=== PATIENT | male | born 1930 | race Caucasian/White ===

== ENCOUNTER 2017-07-06 12:34 | Inpatient (IN) | payer MEDICARE, BC ==
[~2017-07-06] VITALS: Ht 182.9 cm; Wt 66.6 kg
[2017-07-06 13:15] VITALS: BP 146/79
[2017-07-06] MEDS ORDERED: LORazepam 2 MG/ML, 1ML IVPush PRN (15:00)
[2017-07-06] MEDS ORDERED: PLEASE ENTER HEIGHT AND WEIGHT MC SCH (15:30)
[2017-07-06] MEDS ORDERED: PLEASE ENTER ALLERGIES MC SCH (15:30)
[2017-07-06 15:59] LABS: BASOPHILS # (AUTO) 0.07 x10^3/uL (0-0.1); BASOPHILS % (AUTO) 1 % (0-1); EOSINOPHILS # (AUTO) 0.07 x10^3/uL (0-0.4); EOSINOPHILS % (AUTO) 1 % (1-7); LYMPHOCYTES # (AUTO) 0.84 x10^3/uL (1-3.4); LYMPHOCYTES % (AUTO) 10 % (22-44); MD NO; MEAN CORPUSCULAR HEMOGLOBIN 32.1 pg (27.5-34.5); MEAN CORPUSCULAR HGB CONC 33.9 g/dL (33.2-36.2); MEAN PLATELET VOLUME 8.8 fL (7.4-10.4); MONOCYTES % (AUTO) 9 % (2-9); NEUTROPHILS # (AUTO) 6.88 x10^3/uL (1.8-6.8); NEUTROPHILS % (AUTO) 79 % (42-75); PLATELET COUNT 159 x10^3/uL (130-400); RED BLOOD COUNT 4.43 x10^6/uL (4.38-5.82); RED CELL DISTRIBUTION WIDTH 15.3 % (9.4-14.8)
[2017-07-06 16:12] LABS: ANION GAP 8 mmol/L (5-15); CALCIUM 8.6 mg/dL (8.5-10.1); CHLORIDE 107 mmol/L (98-107)
[2017-07-06 16:15] LABS: TROPONIN I 0.065 ng/mL (0.000-0.045)
[2017-07-06 16:22] LABS: FREE T4 (FREE THYROXINE) 0.97 ng/dL (0.76-1.46); THYROID STIMULATING HORMONE 18.7 mIU/L (0.358-3.740)
[2017-07-06 17:27] LABS: MICROSCOPIC AUTO
[2017-07-06 17:45] LABS: CULTURE INDICATED? NO
[2017-07-06] MEDS: SODIUM CHLORIDE 0.9% 1,000 ML IV SCH (18:09)
[2017-07-06 19:16] VITALS: BP 167/87
[2017-07-06 21:26] LABS: TROPONIN I 0.051 ng/mL (0.000-0.045)
[2017-07-06] MEDS: ENOXAPARIN 40 MG/0.4 ML SQ SCH (22:55)
[2017-07-07 00:42] VITALS: BP 150/83
[2017-07-07] MEDS: SODIUM CHLORIDE 0.9% 1,000 ML IV SCH ×3 (03:34→23:30)
[2017-07-07 05:45] LABS: CHLORIDE 107 mmol/L (98-107)
[2017-07-07 06:09] LABS: BASOPHILS % (AUTO) 0 % (0-1); EOSINOPHILS # (AUTO) 0.07 x10^3/uL (0-0.4); EOSINOPHILS % (AUTO) 1 % (1-7); LYMPHOCYTES # (AUTO) 0.81 x10^3/uL (1-3.4); LYMPHOCYTES % (AUTO) 8 % (22-44); MD NO; MEAN CORPUSCULAR HEMOGLOBIN 32.6 pg (27.5-34.5); MEAN CORPUSCULAR HGB CONC 34.4 g/dL (33.2-36.2); MEAN CORPUSCULAR VOLUME 94.7 fL (81-97); MEAN PLATELET VOLUME 9.5 fL (7.4-10.4); MONOCYTES # (AUTO) 0.81 x10^3/uL (0.2-0.8); MONOCYTES % (AUTO) 8 % (2-9); NEUTROPHILS # (AUTO) 8.18 x10^3/uL (1.8-6.8); NEUTROPHILS % (AUTO) 83 % (42-75); PLATELET COUNT 163 x10^3/uL (130-400); RED BLOOD COUNT 4.48 x10^6/uL (4.38-5.82); RED CELL DISTRIBUTION WIDTH 15.2 % (9.4-14.8)
[2017-07-07 06:29] LABS: ALANINE AMINOTRANSFERASE 40 U/L (12-78); ALBUMIN 3.2 g/dL (3.4-5.0); ALKALINE PHOSPHATASE 65 U/L (45-117); ANION GAP 10 mmol/L (5-15); CALCIUM 8.7 mg/dL (8.5-10.1); CREATININE 0.85 mg/dL (0.7-1.3); TOTAL PROTEIN 6.8 g/dL (6.4-8.2)
[2017-07-07] MEDS ORDERED: LEVO125T5 PO (06:42)
[2017-07-07] MEDS ORDERED: ASPI-430 PO (06:42)
[2017-07-07] MEDS ORDERED: ACYC-113 PO (06:42)
[2017-07-07] MEDS ORDERED: RISP0.5T3 PO (06:42)
[2017-07-07] MEDS ORDERED: SERT50TA5 PO (06:42)
[2017-07-07] MEDS ORDERED: LYSI500T PO (06:42)
[2017-07-07] MEDS ORDERED: VIT1CAPS45 PO (06:42)
[2017-07-07] MEDS ORDERED: FINA5TAB4 PO (06:42)
[2017-07-07 07:02] VITALS: BP 158/78
[2017-07-07] MEDS ORDERED: RISPERIDONE 0.5 MG TABLET PO SCH (09:00)
[2017-07-07] MEDS: LEVOTHYROXINE 125 MCG TABLET PO SCH (10:58)
[2017-07-07] MEDS: QUETIAPINE 25MG TABLET PO SCH ×3 (10:58→18:00)
[2017-07-07] MEDS: SERTRALINE 50MG TABLET PO SCH (10:58)
[2017-07-07 14:00] VITALS: BP_SYST 171; BP_SYST 174; BP_DIAS 86; BP_DIAS 91
[2017-07-07] MEDS ORDERED: RISPERIDONE 1 MG TABLET PO SCH (16:30)
[2017-07-07] MEDS: MELATONIN 3 MG TABLET PO SCH (21:00)
[2017-07-07] MEDS: ENOXAPARIN 40 MG/0.4 ML SQ SCH (22:10)
[2017-07-08 01:39] VITALS: BP 164/76
[2017-07-08 06:40] VITALS: BP 164/85
[2017-07-08] MEDS: LEVOTHYROXINE 125 MCG TABLET PO SCH (09:03)
[2017-07-08] MEDS: SERTRALINE 50MG TABLET PO SCH (09:03)
[2017-07-08] MEDS: QUETIAPINE 25MG TABLET PO SCH ×3 (09:03→17:46)
[2017-07-08 15:55] VITALS: BP 143/79
[2017-07-08] MEDS: SODIUM CHLORIDE 0.9% 1,000 ML IV SCH (15:56)
[2017-07-08 20:00] VITALS: BP 161/80
[2017-07-08] MEDS: MELATONIN 3 MG TABLET PO SCH (21:00)
[2017-07-08] MEDS: ENOXAPARIN 40 MG/0.4 ML SQ SCH (21:49)
[2017-07-09] MEDS: SODIUM CHLORIDE 0.9% 1,000 ML IV SCH (02:13)
[2017-07-09 03:32] VITALS: BP 150/58
[2017-07-09 08:30] VITALS: BP 143/84
[2017-07-09] MEDS: SERTRALINE 50MG TABLET PO SCH (08:39)
[2017-07-09] MEDS: QUETIAPINE 25MG TABLET PO SCH ×3 (08:39→18:36)
[2017-07-09] MEDS: LEVOTHYROXINE 125 MCG TABLET PO SCH (08:40)
[2017-07-09 15:15] VITALS: BP 162/93
[2017-07-09 19:44] VITALS: BP 148/81
[2017-07-09] MEDS: ENOXAPARIN 40 MG/0.4 ML SQ SCH (20:39)
[2017-07-09] MEDS: MELATONIN 3 MG TABLET PO SCH (20:40)
[2017-07-10 03:50] VITALS: BP 178/69
[2017-07-10 05:42] LABS: CREATININE 0.96 mg/dL (0.7-1.3)
[2017-07-10] MEDS: LEVOTHYROXINE 125 MCG TABLET PO SCH (08:17)
[2017-07-10] MEDS: SERTRALINE 50MG TABLET PO SCH (08:17)
[2017-07-10] MEDS: QUETIAPINE 25MG TABLET PO SCH ×3 (08:17→18:07)
[2017-07-10 08:19] VITALS: BP 173/75
[2017-07-10 14:00] VITALS: BP 145/72
[2017-07-10] MEDS: ENOXAPARIN 40 MG/0.4 ML SQ SCH (19:57)
[2017-07-10] MEDS: MELATONIN 3 MG TABLET PO SCH (19:59)
[2017-07-10 20:39] VITALS: BP 144/74
[2017-07-11 02:00] VITALS: BP 188/84
[2017-07-11 03:02] VITALS: BP 153/91
[2017-07-11] MEDS ORDERED: OLANZAPINE 5 MG TABLET PO ONE (07:00)
[2017-07-11 07:23] VITALS: BP 150/87
[2017-07-11] MEDS: SERTRALINE 50MG TABLET PO SCH (08:50)
[2017-07-11] MEDS: LEVOTHYROXINE 125 MCG TABLET PO SCH (08:51)
[2017-07-11] MEDS: QUETIAPINE 25MG TABLET PO SCH ×3 (08:51→16:41)
[2017-07-11 13:34] VITALS: BP 148/87
[2017-07-11] MEDS ORDERED: QUETIAPINE 25MG TABLET PO PRN (14:30)
[2017-07-11 20:20] VITALS: BP 178/99
[2017-07-11] MEDS: MELATONIN 3 MG TABLET PO SCH (21:00)
[2017-07-11] MEDS: ENOXAPARIN 40 MG/0.4 ML SQ SCH (21:00)
[2017-07-12 06:34] VITALS: BP 143/81
[2017-07-12] MEDS: SERTRALINE 50MG TABLET PO SCH (09:50)
[2017-07-12] MEDS: QUETIAPINE 25MG TABLET PO SCH ×3 (09:50→16:34)
[2017-07-12] MEDS: LEVOTHYROXINE 125 MCG TABLET PO SCH (09:51)
[2017-07-12] MEDS ORDERED: QUET25TA PO (12:48)
[2017-07-12] MEDS ORDERED: MELA3TAB2 PO (12:48)
[2017-07-12] MEDS ORDERED: SERT50TA5 PO (12:48)
[2017-07-12 15:00] VITALS: BP 153/77
== END 2017-07-12 18:13 | DRG 56 ==
LOC: 4EST 14:05
PROVIDERS: ADMIT Hospitalist; ATTEND Hospitalist
PROC: 0T9B70Z Drainage of Bladder with Drainage Device, Via Natural or Artificial Opening (ICD-10-PCS; principal; 2017-07-06)
DX: G30.9 Alzheimer's disease, unspecified (principal); G93.41 Metabolic encephalopathy; J84.9 Interstitial pulmonary disease, unspecified; F01.51 Vascular dementia, unspecified severity, with behavioral disturbance; F05 Delirium due to known physiological condition; F22 Delusional disorders; I35.0 Nonrheumatic aortic (valve) stenosis; E03.9 Hypothyroidism, unspecified; E78.5 Hyperlipidemia, unspecified; H91.93 Unspecified hearing loss, bilateral; I10 Essential (primary) hypertension; K59.00 Constipation, unspecified; R32 Unspecified urinary incontinence; Z66 Do not resuscitate; F32.9 Major depressive disorder, single episode, unspecified; M54.30 Sciatica, unspecified side; Z79.82 Long term (current) use of aspirin; Z79.899 Other long term (current) drug therapy; Z85.46 Personal history of malignant neoplasm of prostate; Z86.73 Personal history of transient ischemic attack (TIA), and cerebral infarction without residual deficits; Z86.79 Personal history of other diseases of the circulatory system; Z90.49 Acquired absence of other specified parts of digestive tract; Z90.79 Acquired absence of other genital organ(s); Z95.5 Presence of coronary angioplasty implant and graft
CPT/HCPCS: 36415; 71010; 80048; 80053; 81001; 82565; 84439; 84443; 84484; 85025; 95819; J1650; J7030

== ENCOUNTER 2017-08-15 13:28 | Inpatient (IN) | payer MEDICARE, BC ==
[~2017-08-15] VITALS: Ht 177.8 cm; Wt 62.4 kg
[~2017-08-15 13:28] MED LIST: ACYC-113 PO; ASPI-430 PO; FINA5TAB4 PO; LEVO125T5 PO; LYSI500T PO; MELA3TAB2 PO; QUET25TA PO; RISP0.5T3 PO; SERT50TA5 PO; VIT1CAPS45 PO
[2017-08-15 13:55] LABS: BASOPHILS # (AUTO) 0.04 x10^3/uL (0-0.1); BASOPHILS % (AUTO) 1 % (0-1); EOSINOPHILS # (AUTO) 0.07 x10^3/uL (0-0.4); EOSINOPHILS % (AUTO) 1 % (1-7); LYMPHOCYTES # (AUTO) 0.87 x10^3/uL (1-3.4); LYMPHOCYTES % (AUTO) 13 % (22-44); MD NO; MEAN CORPUSCULAR HEMOGLOBIN 32.2 pg (27.5-34.5); MEAN CORPUSCULAR HGB CONC 33.6 g/dL (33.2-36.2); MEAN CORPUSCULAR VOLUME 95.8 fL (81-97); MEAN PLATELET VOLUME 8.1 fL (7.4-10.4); MONOCYTES # (AUTO) 0.45 x10^3/uL (0.2-0.8); MONOCYTES % (AUTO) 7 % (2-9); NEUTROPHILS # (AUTO) 5.26 x10^3/uL (1.8-6.8); NEUTROPHILS % (AUTO) 79 % (42-75); PLATELET COUNT 213 x10^3/uL (130-400); RED BLOOD COUNT 3.82 x10^6/uL (4.38-5.82); RED CELL DISTRIBUTION WIDTH 15.9 % (9.4-14.8)
[2017-08-15 14:01] LABS: ALBUMIN 3.3 g/dL (3.4-5.0); ANION GAP 8 mmol/L (5-15); CALCIUM 8.5 mg/dL (8.5-10.1); CHLORIDE 103 mmol/L (98-107); CREATININE 0.97 mg/dL (0.7-1.3); T4 (THYROXINE) 10.1 mcg/dL (4.5-12.1)
[2017-08-15 14:11] LABS: THYROID STIMULATING HORMONE 0.321 mIU/L (0.358-3.740)
[2017-08-15 14:51] LABS: MICROSCOPIC NOT IND
[2017-08-15] MEDS ORDERED: ONDANSETRON 2MG/ML, 2ML IVPush PRN (16:30)
[2017-08-15] MEDS ORDERED: BISACODYL 10 MG SUPP PR PRN (16:30)
[2017-08-15] MEDS ORDERED: LABETALOL 5MG/ML, 20ML IVPush PRN (16:30)
[2017-08-15] MEDS ORDERED: ASPIRIN 81 MG TABLET EC PO PRN (16:30)
[2017-08-15] MEDS ORDERED: DOCUSATE 100 MG CAPSULE PO PRN (16:30)
[2017-08-15] MEDS ORDERED: ACETAMINOPHEN 325 MG TABLET PO PRN (16:30)
[2017-08-15] MEDS ORDERED: POLYETHYLENE GLYCOL 17 GM PACKET PO PRN (16:30)
[2017-08-15 16:53] LABS: FOLATE LEVEL 14.5 ng/mL (3.1-17.5)
[2017-08-15] MEDS ORDERED: MAGN200T7 PO (17:46)
[2017-08-15] MEDS ORDERED: QUET50TA PO (17:53)
[2017-08-15] MEDS: ACYCLOVIR 200 MG CAPSULE PO SCH (20:26)
[2017-08-15] MEDS: QUETIAPINE 25MG TABLET PO SCH (20:26)
[2017-08-15] MEDS: SODIUM CHLORIDE FLUSH 10ML SYR IVF SCH (20:27)
[2017-08-15] MEDS: MELATONIN 3 MG TABLET PO SCH (20:27)
[2017-08-15 20:30] VITALS: BP 158/77
[2017-08-15] MEDS: ENOXAPARIN 40 MG/0.4 ML SQ SCH (20:30)
[2017-08-16 01:38] VITALS: BP 148/77
[2017-08-16 04:42] LABS: BASOPHILS # (AUTO) 0.02 x10^3/uL (0-0.1); BASOPHILS % (AUTO) 0 % (0-1); EOSINOPHILS # (AUTO) 0.05 x10^3/uL (0-0.4); EOSINOPHILS % (AUTO) 1 % (1-7); LYMPHOCYTES # (AUTO) 0.97 x10^3/uL (1-3.4); LYMPHOCYTES % (AUTO) 10 % (22-44); MD NO; MEAN CORPUSCULAR HEMOGLOBIN 32.1 pg (27.5-34.5); MEAN CORPUSCULAR HGB CONC 33.3 g/dL (33.2-36.2); MEAN CORPUSCULAR VOLUME 96.4 fL (81-97); MEAN PLATELET VOLUME 8.4 fL (7.4-10.4); MONOCYTES # (AUTO) 0.81 x10^3/uL (0.2-0.8); MONOCYTES % (AUTO) 9 % (2-9); NEUTROPHILS # (AUTO) 7.62 x10^3/uL (1.8-6.8); NEUTROPHILS % (AUTO) 80 % (42-75); PLATELET COUNT 229 x10^3/uL (130-400); RED BLOOD COUNT 4.21 x10^6/uL (4.38-5.82); RED CELL DISTRIBUTION WIDTH 15.6 % (9.4-14.8)
[2017-08-16 04:54] LABS: ALBUMIN 3.5 g/dL (3.4-5.0); ANION GAP 6 mmol/L (5-15); CALCIUM 8.7 mg/dL (8.5-10.1); CHLORIDE 103 mmol/L (98-107)
[2017-08-16 04:58] LABS: ALANINE AMINOTRANSFERASE 26 U/L (12-78); ALKALINE PHOSPHATASE 80 U/L (45-117); BILIRUBIN,TOTAL 0.9 mg/dL (0.2-1.0); CREATININE 1.01 mg/dL (0.7-1.3); TOTAL PROTEIN 7.3 g/dL (6.4-8.2)
[2017-08-16 07:25] VITALS: BP_SYST 154; BP_SYST 177; BP_DIAS 72; BP_DIAS 76
[2017-08-16] MEDS: LEVOTHYROXINE 125 MCG TABLET PO SCH (08:25)
[2017-08-16] MEDS: SODIUM CHLORIDE FLUSH 10ML SYR IVF SCH ×2 (08:25→21:00)
[2017-08-16] MEDS: QUETIAPINE 25MG TABLET PO SCH ×3 (08:25→23:48)
[2017-08-16] MEDS: SERTRALINE 50MG TABLET PO SCH (08:25)
[2017-08-16] MEDS: ACYCLOVIR 200 MG CAPSULE PO SCH (08:25)
[2017-08-16] MEDS: FINASTERIDE 5 MG TABLET PO SCH (08:26)
[2017-08-16] MEDS: COD LIVER OIL HOMEMEDPO SCH (08:27)
[2017-08-16] MEDS: [UNRECOGNIZED DRUG - OTHER] HOMEMEDPO SCH (08:27)
[2017-08-16] MEDS ORDERED: LYSINE 1000 MG PO SCH (09:00)
[2017-08-16 09:33] VITALS: BP 130/74
[2017-08-16 13:14] VITALS: BP 116/68
[2017-08-16] MEDS: QUETIAPINE 25MG TABLET PO PRN (15:16)
[2017-08-16] MEDS: DIVALPROEX 125 MG CAP.SPRINK PO SCH (17:01)
[2017-08-16] MEDS ORDERED: LORazepam 2 MG/ML, 1ML IM PRN (17:30)
[2017-08-16 20:52] VITALS: BP 169/81
[2017-08-16] MEDS: ENOXAPARIN 40 MG/0.4 ML SQ SCH (21:00)
[2017-08-16] MEDS: MELATONIN 3 MG TABLET PO SCH (23:48)
[2017-08-17] MEDS ORDERED: LORazepam 0.5MG TABLET PO PRN
[2017-08-17] MEDS ORDERED: LORazepam 2 MG/ML, 1ML IM PRN (01:30)
[2017-08-17 06:16] VITALS: BP 159/74
[2017-08-17 07:08] VITALS: BP 155/81
[2017-08-17] MEDS: [UNRECOGNIZED DRUG - OTHER] HOMEMEDPO SCH (09:00)
[2017-08-17] MEDS: FINASTERIDE 5 MG TABLET PO SCH (09:00)
[2017-08-17] MEDS: SODIUM CHLORIDE FLUSH 10ML SYR IVF SCH ×2 (09:00→20:06)
[2017-08-17] MEDS: COD LIVER OIL HOMEMEDPO SCH (09:00)
[2017-08-17] MEDS: ACYCLOVIR 200 MG CAPSULE PO SCH (10:00)
[2017-08-17] MEDS: QUETIAPINE 25MG TABLET PO SCH ×2 (10:01→18:30)
[2017-08-17] MEDS: LEVOTHYROXINE 125 MCG TABLET PO SCH (10:01)
[2017-08-17] MEDS: SERTRALINE 50MG TABLET PO SCH (10:01)
[2017-08-17] MEDS: DIVALPROEX 125 MG CAP.SPRINK PO SCH ×2 (13:56→18:30)
[2017-08-17 14:30] VITALS: BP 105/67
[2017-08-17] MEDS ORDERED: DIVALPROEX 125 MG CAP.SPRINK PO ONE (17:00)
[2017-08-17 20:00] VITALS: BP 106/67
[2017-08-18] MEDS: QUETIAPINE 25MG TABLET PO SCH ×4 (00:31→23:14)
[2017-08-18] MEDS: MELATONIN 3 MG TABLET PO SCH ×2 (00:31→21:00)
[2017-08-18] MEDS: ENOXAPARIN 40 MG/0.4 ML SQ SCH ×2 (00:32→23:15)
[2017-08-18 04:44] VITALS: BP 158/74
[2017-08-18 07:09] VITALS: BP 143/68
[2017-08-18] MEDS: COD LIVER OIL HOMEMEDPO SCH (09:00)
[2017-08-18] MEDS: SODIUM CHLORIDE FLUSH 10ML SYR IVF SCH ×2 (09:00→21:00)
[2017-08-18] MEDS: FINASTERIDE 5 MG TABLET PO SCH (09:00)
[2017-08-18] MEDS: [UNRECOGNIZED DRUG - OTHER] HOMEMEDPO SCH (09:00)
[2017-08-18] MEDS: DIVALPROEX 125 MG CAP.SPRINK PO SCH ×2 (09:50→15:01)
[2017-08-18] MEDS: ACYCLOVIR 200 MG CAPSULE PO SCH (09:50)
[2017-08-18] MEDS: SERTRALINE 50MG TABLET PO SCH (09:50)
[2017-08-18] MEDS: LEVOTHYROXINE 125 MCG TABLET PO SCH (09:51)
[2017-08-18 14:30] VITALS: BP_SYST 145; BP_SYST 83; BP_DIAS 50; BP_DIAS 74
[2017-08-18 21:00] VITALS: BP 130/76
[2017-08-19 02:30] VITALS: BP 132/75
[2017-08-19 07:12] VITALS: BP 129/70
[2017-08-19] MEDS: FINASTERIDE 5 MG TABLET PO SCH (09:00)
[2017-08-19] MEDS: COD LIVER OIL HOMEMEDPO SCH (09:00)
[2017-08-19] MEDS: [UNRECOGNIZED DRUG - OTHER] HOMEMEDPO SCH (09:00)
[2017-08-19] MEDS: DIVALPROEX 125 MG CAP.SPRINK PO SCH ×2 (09:09→12:23)
[2017-08-19] MEDS: SODIUM CHLORIDE FLUSH 10ML SYR IVF SCH ×2 (09:09→19:59)
[2017-08-19] MEDS: LEVOTHYROXINE 125 MCG TABLET PO SCH (09:09)
[2017-08-19] MEDS: ACYCLOVIR 200 MG CAPSULE PO SCH (09:10)
[2017-08-19] MEDS: SERTRALINE 50MG TABLET PO SCH (09:10)
[2017-08-19] MEDS: QUETIAPINE 25MG TABLET PO SCH ×3 (09:10→19:57)
[2017-08-19 13:05] VITALS: BP 123/68
[2017-08-19 19:33] VITALS: BP 129/72
[2017-08-19] MEDS: ENOXAPARIN 40 MG/0.4 ML SQ SCH (19:57)
[2017-08-19] MEDS: MELATONIN 3 MG TABLET PO SCH (19:58)
[2017-08-20 02:10] VITALS: BP 146/77
[2017-08-20 05:29] LABS: CHLORIDE 105 mmol/L (98-107)
[2017-08-20 05:41] LABS: ALANINE AMINOTRANSFERASE 24 U/L (12-78); ALKALINE PHOSPHATASE 73 U/L (45-117); ANION GAP 7 mmol/L (5-15); BILIRUBIN,TOTAL 0.8 mg/dL (0.2-1.0); CALCIUM 8.9 mg/dL (8.5-10.1); CREATININE 0.87 mg/dL (0.7-1.3)
[2017-08-20 06:46] VITALS: BP 158/56
[2017-08-20] MEDS: DIVALPROEX 125 MG CAP.SPRINK PO SCH ×2 (08:18→12:17)
[2017-08-20] MEDS: LEVOTHYROXINE 125 MCG TABLET PO SCH (08:18)
[2017-08-20] MEDS: FINASTERIDE 5 MG TABLET PO SCH (08:19)
[2017-08-20] MEDS: SERTRALINE 50MG TABLET PO SCH (08:19)
[2017-08-20] MEDS: QUETIAPINE 25MG TABLET PO SCH (08:19)
[2017-08-20] MEDS: COD LIVER OIL HOMEMEDPO SCH (08:19)
[2017-08-20] MEDS: ACYCLOVIR 200 MG CAPSULE PO SCH (08:19)
[2017-08-20] MEDS: [UNRECOGNIZED DRUG - OTHER] HOMEMEDPO SCH (08:19)
[2017-08-20] MEDS: SODIUM CHLORIDE FLUSH 10ML SYR IVF SCH (08:20)
[2017-08-20] MEDS ORDERED: QUET25TA PO (09:51)
[2017-08-20] MEDS ORDERED: DIVA125C PO (09:51)
[2017-08-20 12:21] VITALS: BP 148/80
[2017-08-20] MEDS: QUETIAPINE 25MG TABLET PO PRN (12:23)
== END 2017-08-20 13:20 | DRG 884 ==
LOC: ED 14:36 → EDIP 14:48 → 3NE 16:54 → 4WST 08-16 10:22
PROVIDERS: ADMIT Internal Medicine; ATTEND Internal Medicine
DX: F01.51 Vascular dementia, unspecified severity, with behavioral disturbance (principal); G93.40 Encephalopathy, unspecified; E44.1 Mild protein-calorie malnutrition; K22.2 Esophageal obstruction; F22 Delusional disorders; I45.81 Long QT syndrome; Z68.1 Body mass index [BMI] 19.9 or less, adult; D64.9 Anemia, unspecified; F43.24 Adjustment disorder with disturbance of conduct; F32.9 Major depressive disorder, single episode, unspecified; E03.9 Hypothyroidism, unspecified; Z66 Do not resuscitate; R33.8 Other retention of urine; N40.1 Benign prostatic hyperplasia with lower urinary tract symptoms; I25.10 Atherosclerotic heart disease of native coronary artery without angina pectoris; F41.9 Anxiety disorder, unspecified; F43.21 Adjustment disorder with depressed mood; Z95.5 Presence of coronary angioplasty implant and graft; Z86.79 Personal history of other diseases of the circulatory system; Z85.46 Personal history of malignant neoplasm of prostate
CPT/HCPCS: 36415; 71045; 80048; 80053; 81003; 82040; 82607; 82746; 84436; 84443; 85025; 86480; 93005; 99285; J1650; J2060

== ENCOUNTER 2017-09-05 23:22 | Emergency (ER) | payer MEDICARE, BC ==
[~2017-09-05] VITALS: Ht 182.9 cm; Wt 55.0 kg
[~2017-09-05 23:22] MED LIST changes: +DIVA125C PO; +LORA2ORA PO; +MAGN200T7 PO; +MORP20SO PO; +QUET50TA PO
[2017-09-05 23:32] VITALS: BP_DIAS 78
[2017-09-05] MEDS ORDERED: LORA2ORA PO (23:43)
[2017-09-06 01:39] VITALS: BP_SYST 124
== END 2017-09-06 01:41 | disposition home or self-care (01) ==
LOC: ED 23:36
DX: G30.1 Alzheimer's disease with late onset (principal); F02.81 Dementia in other diseases classified elsewhere, unspecified severity, with behavioral disturbance; E03.9 Hypothyroidism, unspecified
CPT/HCPCS: 99281; 99284